=== PATIENT | male | born 1940 | race Caucasian/White ===

== ENCOUNTER 2020-06-24 10:06 | Outpatient (CLI) | payer MEDICARE, SELFPAY ==
[2020-06-24 11:09] LABS: Alanine Aminotransferase 17 U/L (4-50); Aspartate Amino Transferase 33 U/L (17-59)
== END 2020-06-24 10:07 | disposition home or self-care (01) ==
PROVIDERS: PCP Internal Medicine; Visit Provider Podiatrist Foot & Ankle Surgery
DX: B35.1 Tinea unguium (principal)
CPT/HCPCS: 36415; 84450; 84460

== ENCOUNTER 2024-12-07 09:01 | Outpatient (CLI) | payer MEDICARE, SELFPAY ==
--- OUTSIDE RECORDS SUMMARY | 2006-12-28 06:01 | XMS_ITS | Continuity of Care Document ---
Author Organization [facility] Address [address] [place] [address] Phone Care Team Providers Care Computer Technician Name Role Phone Bob Chavez MD Unavailable Unavailable Procedures Procedure Date Office/outpatient Visit, Est Eye Exam Established Pt Advance Directives Directive Yes / No Effective Date File Name No Information Encounters Encounter Description Practice Location Reason(s) For Visit Diagnoses Date Provider Providers Copied on Encounter Office/outpat ient Visit, Est [facility], [id number] [place] [address] [address], [place], [place], [id number], [place] tel:[phone] SEC [facility] No Information 7 Scott Rojas. [address], [address], [place], [place], [address], [place]. tel:[phone] [facility], [address] [place] [address] [address], [place], [place], [id number], [place] tel:[phone] SEC [facility] No Information [address] Claudia Cheung. [address] , [address], [place], [address], [place]. tel:[phone] Family History Family Member Type Diagnosis Age At Onset No Information Payers Payer name Insurance type Covered alliance party ID Authoriza tion(s) No Information Social History Type Description Quantity Date Captured Comments Sex Male Smoking Status No Information Chief Complaint And Reason For Visit No Information Reason For Referral Reason For Referral No Information History Of Present Illness Encounter Date Complaint History Of Prese nt Illness No Information Functional Status Date Functional Assessmen t No Information Instructions Date Instruction Additional Infor mation No Information Assessments Type Assessment Date No Information Patient Care Teams Name Effective Dates (start - stop) Status Members No Information
--- OUTSIDE RECORDS SUMMARY | 2024-12-07 09:49 | XMS_ITS | Encounter Summary ---
Author Organization [facility] Address [address] [facility] [place] [address] Care Team Providers Care Plush Cutter Name Role Phone Unavailable Primary Care Provider Unavailabl e Encounter Details Date Type Department Care Team (Late st Contact Info) Description 06/01/2018 Lab Requisition [facility] Care DermPath Lab [address] [place] [address] Guy Bro MD [address] [place] [address] Social History Tobacco Use Types Packs/Day Years Used Date Smoking Tobacco: Never Assessed Sex and Gender Information Value Date Recorded Sex Assigned at Not on file 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 Gender Identity Not on file Sexual Orientation Not on file documented as of this encounter Plan of Treatment Not on file documented as of this encounter Procedures Procedure Name Priority Date/Time Associated Diagnosis Comments DERMATOPATHOLOGY Routine 05/31/2018 12:0 0 AM CDT documented in this encounter Results * DERMATOPATHOLOGY (05/31/2018 12:00 AM CDT) Case Report Dermatopathology Report Case: [id number] Authorizing Provider: Guy Bro MD Collected: 05/31/2018 12:00 AM Pathologist: Snow Galan MD Received: 06/01/2018 12:59 PM Specimen: Skin, post right ear 9 3:19 PM CDT DERMATOPATHOLOGY LABORATORY Final Diagnosis Specimen A. SKIN, post right ear: BASAL CELL CARCINOMA, NODULAR TYPE (C44.212) 9 3:19 PM CDT DERMATOPATHOLOGY LABORATORY at 1519 CDT Clinical History R/O BCC. 3:19 PM CDT DERMATOPATHOLOGY LABORATORY Gross Description Specimen A: Received is one formalin filled container labeled with the patient's name and designated post right ear. The specimen consists of a shave biopsy measuring 3h3w7wu. Jar 0. 3:19 PM CDT DERMATOPATHOLOGY LABORATORY Microscopic Description Specimen A. SKIN, post right ear: Within the dermis there are aggregates of basaloid cells with a high nuclear to cytoplasmic ratio and peripheral palisading. 3:19 PM CDT DERMATOPATHOLOGY LABORATORY Disclaimer An external and internal positive and negative controls are appropriate for the histochemical, immunohistochemical and immunofluorescence stain(s) in this case (if any), except where stated explicitly. The performance characteristics of the stain(s) cited in this report were developed and its performance characteristic determined by the Dermatopathology Laboratory at [facility], directed by Dr. Lisa Galan. These tests need not be, and therefore are not, approved by the [place] Food and Drug Administration. The tests are used for clinical purposes. Billing Codes Specimen Charges Stain Charges 69355 1 3:19 PM CDT DERMATOPATHOLOGY LABORATORY Embedded Images 3:19 PM CDT DERMATOPATHOLOGY LABORATORY Pathology/Cytolog y TISSUE SPECIMEN FROM SKIN / Unknown 05/31/2018 06/01/2018 12:59 PM CDT Guy Bro MD LAB - PATHOLOGY/CYTOLOGY ORD ERABLES Final Result DERMATOPATHOLOGY LABORATORY [facility] - Department of Dermatology [facility] [facility] [place] [address], [facility] [phone] documented in this encounter Visit Diagnoses Not on filedocumented in this encounter
--- OUTSIDE RECORDS SUMMARY | 2024-12-07 09:49 | XMS_ITS | Encounter Summary ---
Author Organization 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 Gender Identity Not on file Sexual Orientation Not on file documented as of this encounter Plan of Treatment Not on file documented as of this encounter Procedures Procedure Name Priority Date/Time Associated Diagnosis Comments DERMATOPATHOLOGY Routine 06/23/2022 12:0 0 AM CDT documented in this encounter Results * DERMATOPATHOLOGY (06/23/2022 12:00 AM CDT) Case Report Dermatopathology Report Case: [id number] Authorizing Provider: Guy Bro MD Collected: 06/23/2022 12:00 AM Ordering Location: [facility] DermPath Lab Received: 06/24/2022 04:07 PM Pathologist: Kiki Manuel MD Specimen: Skin, right top helix rim 12:49 PM CDT DERMATOPATHOLOGY LABORATORY Final Diagnosis Specimen A. 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 The specimen consists of a shave biopsy measuring 6x4x1 mm. Jar 0. 3 12:49 PM CDT DERMATOPATHOLOGY LABORATORY Microscopic Description Specimen A. SKIN, right top helix rim: The epidermis shows parakeratosis, full thickness disorderly maturation of keratinocytes, mitoses at different levels, and dyskeratotic cells. Focal nests are present in the dermis. 3 12:49 PM CDT DERMATOPATHOLOGY LABORATORY Disclaimer An external and internal positive and negative controls are appropriate for the histochemical, immunohistochemical and immunofluorescence stain(s) in this case (if any), except where stated explicitly. The performance characteristics of the stain(s) cited in this report were developed and its performance characteristic determined by the Dermatopathology Laboratory at [facility], directed by Dr. Lisa Galan. These tests need not be, and therefore are not, approved by the [place] Food and Drug Administration. The tests are used for clinical purposes. Billing Codes Specimen Charges Stain Charges 79702 1 3 12:49 PM CDT DERMATOPATHOLOGY LABORATORY Embedded Images 3 12:49 PM CDT DERMATOPATHOLOGY LABORATORY Pathology/Cytolog y TISSUE SPECIMEN FROM SKIN / Unknown 06/23/2022 06/24/2022 4:07 PM CDT us Guy Bro MD LAB - PATHOLOGY/CYTOLOGY ORD ERABLES Final Result DERMATOPATHOLOGY LABORATORY [facility] - Department of Dermatology [address] [place] [address], [facility] [phone] documented in this encounter Visit Diagnoses Not on filedocumented in this encounter
--- OUTSIDE RECORDS SUMMARY | 2024-12-07 09:49 | XMS_ITS | Encounter Summary ---
Author Organization [facility] Address [address] [facility] [place] [address] Care Team Providers Care Dietitian Therapeutic Name Role Phone Unavailable Primary Care Provider Unavailabl e Encounter Details Date Type Department Care Team (Late st Contact Info) Description 06/09/2018 Lab Requisition [facility] Care DermPath Lab [address] [place] [address] Guy Bro MD [address] [place] [address] Social History Tobacco Use Types Packs/Day Years Used Date Smoking Tobacco: Never Assessed Sex and Gender Information Value Date Recorded Sex Assigned at Not on file 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 Gender Identity Not on file Sexual Orientation Not on file documented as of this encounter Plan of Treatment Not on file documented as of this encounter Procedures Procedure Name Priority Date/Time Associated Diagnosis Comments DERMATOPATHOLOGY Routine 06/08/2018 12:0 0 AM CDT documented in this encounter Results * DERMATOPATHOLOGY (06/08/2018 12:00 AM CDT) Case Report Dermatopathology Report Case: [id number] Authorizing Provider: Guy Bro MD Collected: 06/08/2018 12:00 AM Pathologist: Melva Hawkins MD Received: 06/09/2018 02:20 PM Specimen: Skin, post right ear 9 12:55 PM CDT DERMATOPATHOLOGY LABORATORY Final Diagnosis Specimen A. SKIN, post right ear: DERMAL SCAR; PRESENT AT MARGIN (L90.5) RESIDUAL BASAL CELL CARCINOMA NOT IDENTIFIED 9 12:55 PM CDT DERMATOPATHOLOGY LABORATORY at 1255 CDT Clinical History R/O Biopsy proven BCC, nodular type. See prior biopsy [id number]. Check margins 12:55 PM CDT DERMATOPATHOLOGY LABORATORY Gross Description Specimen A: Received is one formalin filled container labeled with the patient's name and designated post right ear. The specimen consists of a curettage and desiccation biopsy measuring 53g87x5 mm. Jar 0. 12:55 PM CDT DERMATOPATHOLOGY LABORATORY Microscopic Description Specimen A. SKIN, post right ear: There are fibroblasts and collagen bundles oriented parallel to the skin surface with elongated blood vessels, some of which are oriented perpendicular to the skin surface. No basal cell carcinoma is identified. The dermal scar extends to the base of the specimen. 12:55 PM CDT DERMATOPATHOLOGY LABORATORY Disclaimer An external and internal positive and negative controls are appropriate for the histochemical, immunohistochemical and immunofluorescence stain(s) in this case (if any), except where stated explicitly. The performance characteristics of the stain(s) cited in this report were developed and its performance characteristic determined by the Dermatopathology Laboratory at [facility], directed by Dr. Lisa Galan. These tests need not be, and therefore are not, approved by the [place] Food and Drug Administration. The tests are used for clinical purposes. Billing Codes Specimen Charges Stain Charges 47500 1 12:55 PM CDT DERMATOPATHOLOGY LABORATORY Embedded Images 12:55 PM CDT DERMATOPATHOLOGY LABORATORY Pathology/Cytolog y TISSUE SPECIMEN FROM SKIN / Unknown 06/08/2018 06/09/2018 2:20 PM CDT us Guy Bro MD LAB - PATHOLOGY/CYTOLOGY ORD ERABLES Final Result DERMATOPATHOLOGY LABORATORY [facility] - Department of Dermatology [address] [facility] [address] [place] [address], [facility] [phone] documented in this encounter Visit Diagnoses Not on filedocumented in this encounter
--- OUTSIDE RECORDS SUMMARY | 2024-12-07 09:49 | XMS_ITS | Clinical Summary ---
Author Organization [facility] Address [address] [place] [address] Care Team Providers Care Batter Mixer Helper Name Role Phone Unavailable Primary Care Provider Unavailabl e Source Comments [facility],non-owned Affiliates and Associated Physician Practices is amultiple site organization consisting of ambulatory clinics and hospital sitesin [place], [place], [place] and [place]. This disclosure is being madepursuant to the Care Everywhere program and may not contain all information available regarding this patient. 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 Gender Identity Not on file Sexual Orientation Not on file Plan of Treatment Health Maintenance Due Date Last Done Comments MEDICARE AWV 12 MONTHS 1940 DTAP/TDAP/TD VACCINES (1 - Tdap) 08/04/1958 PNEUMOCOCCAL VACCINE 50+ (1 of 1 - PCV) 08/04/1989 ZOSTER VACCINE (1 of 2) 08/04/1989 Respiratory Syncytial Virus (RSV) Vaccine Pt: or over 60 yrs (1 - 1-dose 75+ series) 08/04/2014 DEPRESSION SCREENING 02/23/2024 COVID-19 VACCINE (1 - 2023-2 5 season) 2024 INFLUENZA VACCINE (#1) 2024 HEPATITIS B VACCINE Aged Out No longe r eligible based on patient's age to complete this topic HIB VACCINE Aged Out No longer eligi ble based on patient's age to complete this topic HPV VACCINE Aged Out No longer eligi ble based on patient's age to complete this topic MENINGOCOCCAL (Group B) VACC INE SHARED DECISION-MAKING Aged Out No longer eligibl e based on patient's age to complete this topic MENINGOCOCCAL GROUPS A/C/Y/W VACCINE Aged Out No longer eligible b ased on patient's age to complete this topic Insurance MEDICARE [employer]
--- OUTSIDE RECORDS SUMMARY | 2024-12-07 09:49 | XMS_ITS | Encounter Summary ---
Author Organization [facility] Address [address] [facility] [place] [address] Care Team Providers Care Technical Trainer Name Role Phone Unavailable Primary Care Provider Unavailabl e Encounter Details Date Type Department Care Team (Late st Contact Info) Description 04/25/2020 Lab Requisition [facility] DermPath Lab [address] [place] [address] Guy Bro MD [address] [place] [address] Social History Tobacco Use Types Packs/Day Years Used Date Smoking Tobacco: Never Assessed Sex and Gender Information Value Date Recorded Sex Assigned at Not on file 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 Gender Identity Not on file Sexual Orientation Not on file documented as of this encounter Plan of Treatment Not on file documented as of this encounter Procedures Procedure Name Priority Date/Time Associated Diagnosis Comments DERMATOPATHOLOGY Routine 04/23/2020 3:33 AM CHAIR MECHANIC documented in this encounter Results * DERMATOPATHOLOGY (04/23/2020 3:33 AM CHAIR MECHANIC) Case Report Dermatopathology Report Case: [id number] Authorizing Provider: Guy Bro MD Collected: 04/23/2020 03:33 AM Ordering Location: [facility] Care DermPath Lab Received: 04/25/2020 06:52 AM Pathologist: Kiki Manuel MD Specimen: Skin, right upper lip cutaneous 12:55 PM CHAIR MECHANIC DERMATOPATHOLOGY LABORATORY Final Diagnosis Specimen A. SKIN, right upper lip cutaneous: SEBORRHEIC KERATOSIS (L82.1) 12:55 PM CHAIR MECHANIC DERMATOPATHOLOGY LABORATORY at [address] CHAIR MECHANIC Clinical History R/O SCC, HAK. 12:55 PM [facility] DERMATOPATHOLOGY LABORATORY Gross Description Specimen A: Received is one formalin filled container labeled with the patient's name and designated right upper lip cutaneous. The specimen consists of a shave biopsy measuring 2i3w7km, bisected. Jar 0. 12:55 PM [facility] DERMATOPATHOLOGY LABORATORY Microscopic Description Specimen A. SKIN, right upper lip cutaneous: Sections show an acanthotic lesion composed of relatively uniform keratinocytes. There is hyperkeratosis and pseudo horn cysts formation. 12:55 PM [facility] DERMATOPATHOLOGY LABORATORY Disclaimer An external and internal positive and negative controls are appropriate for the histochemical, immunohistochemical and immunofluorescence stain(s) in this case (if any), except where stated explicitly. The performance characteristics of the stain(s) cited in this report were developed and its performance characteristic determined by the Dermatopathology Laboratory at [facility], directed by Dr. Lisa Galan. These tests need not be, and therefore are not, approved by the [place] Food and Drug Administration. The tests are used for clinical purposes. Billing Codes Specimen Charges Stain Charges 15785 1 12:55 PM [facility] DERMATOPATHOLOGY LABORATORY Embedded Images 12:55 PM [facility] DERMATOPATHOLOGY LABORATORY Pathology/Cytolo gy TISSUE SPECIMEN FROM SKIN / Unknown 04/23/2020 3:33 AM CHAIR MECHANIC 04/25/2020 6:52 AM CHAIR MECHANIC Guy Bro MD LAB - PATHOLOGY/CYTOLOGY ORD ERABLES Final Result DERMATOPATHOLOGY LABORATORY [facility] - Department of Dermatology [address] [place] [address], [facility] [phone] documented in this encounter Visit Diagnoses Not on filedocumented in this encounter
--- OUTSIDE RECORDS SUMMARY | 2024-12-07 09:49 | XMS_ITS | Encounter Summary ---
Author Organization [facility] Address [address] [place] [address] Care Team Providers Care Apparel Stock Checker Name Role Phone Unavailable Primary Care Provider Unavailabl e Encounter Details Date Type Department Care Team (Late st Contact Info) Description 04/07/2021 Lab Requisition [facility] DermPath Lab [address] [place] [address] Guy Bro MD [address] [place], [place] [id number] Social History Tobacco Use Types Packs/Day Years Used Date Smoking Tobacco: Never Assessed Sex and Gender Information Value Date Recorded Sex Assigned at Not on file 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 Gender Identity Not on file Sexual Orientation Not on file documented as of this encounter Plan of Treatment Not on file documented as of this encounter Procedures Procedure Name Priority Date/Time Associated Diagnosis Comments DERMATOPATHOLOGY Routine 04/04/2021 12:0 0 AM STAPLE SHEAR OPERATOR documented in this encounter Results * DERMATOPATHOLOGY (04/04/2021 12:00 AM STAPLE SHEAR OPERATOR) Case Report Dermatopathology Report Case: [id number] Authorizing Provider: Guy Bro MD Collected: 04/04/2021 12:00 AM Ordering Location: [facility] Care DermPath Lab Received: 04/07/2021 12:53 PM Pathologist: Kristen Fried MD Specimen: Skin, right helix rim 12:37 PM STAPLE SHEAR OPERATOR DERMATOPATHOLOGY LABORATORY Final Diagnosis Specimen A. SKIN, right helix rim: SQUAMOUS CELL CARCINOMA, WELL DIFFERENTIATED (C44.229) 12:37 PM STAPLE SHEAR OPERATOR DERMATOPATHOLOGY LABORATORY at 1237 STAPLE SHEAR OPERATOR Clinical History R/O SCC. BCC 2 12:37 PM [facility] DERMATOPATHOLOGY LABORATORY Gross Description Specimen A: Received is one formalin filled container labeled with the patient's name and designated right helix rim. The specimen consists of a shave biopsy measuring 12x5x1 and 12x3x1 mm. Jar 0. 2 12:37 PM [facility] DERMATOPATHOLOGY LABORATORY Microscopic Description Specimen A. SKIN, right helix rim: Arising in the epidermis and extending into the dermis there are irregularly shaped aggregates of keratinocytes showing evidence of premature cornification. 2 12:37 PM [facility] DERMATOPATHOLOGY LABORATORY Disclaimer An external and internal positive and negative controls are appropriate for the histochemical, immunohistochemical and immunofluorescence stain(s) in this case (if any), except where stated explicitly. The performance characteristics of the stain(s) cited in this report were developed and its performance characteristic determined by the Dermatopathology Laboratory at [facility], directed by Dr. Lisa Galan. These tests need not be, and therefore are not, approved by the [place] Food and Drug Administration. The tests are used for clinical purposes. Billing Codes Specimen Charges Stain Charges 11747 1 2 12:37 PM STAPLE SHEAR OPERATOR DERMATOPATHOLOGY LABORATORY Embedded Images 2 12:37 PM [facility] DERMATOPATHOLOGY LABORATORY Pathology/Cytolog y TISSUE SPECIMEN FROM SKIN / Unknown 04/04/2021 04/07/2021 12:53 PM STAPLE SHEAR OPERATOR Guy Bro MD LAB - PATHOLOGY/CYTOLOGY ORD ERABLES Final Result DERMATOPATHOLOGY LABORATORY [facility] - Department of Dermatology [address] [place] [address], [facility] [phone] documented in this encounter Visit Diagnoses Not on filedocumented in this encounter
--- OUTSIDE RECORDS SUMMARY | 2024-12-07 09:49 | XMS_ITS | Encounter Summary ---
Author Organization [facility] Address [address] [place] [address] Care Team Providers Care Gum Cook Name Role Phone Unavailable Primary Care Provider Unavailabl e Encounter Details Date Type Department Care Team (Late st Contact Info) Description 09/22/2017 Lab Requisition [facility] [address] [place] [address] Guy Bro MD [address] [place] [address] Social History Tobacco Use Types Packs/Day Years Used Date Smoking Tobacco: Never Assessed Sex and Gender Information Value Date Recorded Sex Assigned at Not on file 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 Gender Identity Not on file Sexual Orientation Not on file documented as of this encounter Plan of Treatment Not on file documented as of this encounter Procedures Procedure Name Priority Date/Time Associated Diagnosis Comments DERMATOPATHOLOGY Routine 09/21/2017 12:0 0 AM CDT documented in this encounter Results * DERMATOPATHOLOGY (09/21/2017 12:00 AM CDT) Case Report Dermatopathology Report Case: [id number] Authorizing Provider: Guy Bro MD Collected: 09/21/2017 12:00 AM Pathologist: Snow Galan MD Received: 09/22/2017 11:48 AM Specimens: A) - Skin, right paraspinal upper back B) - Skin, above right mid clavicle base of neck C) - Skin, left side neck 8 6:09 PM CDT DERMATOPATHOLOGY LABORATORY Final Diagnosis Specimen A. SKIN, right paraspinal upper back: BASAL CELL CARCINOMA, SUPERFICIAL MULTIFOCAL (C44.519) Specimen B. SKIN, above right mid clavicle base of neck: HYPERPLASTIC (HYPERTROPHIC) ACTINIC KERATOSIS (L57.0) Specimen C. SKIN, left side neck: ACTINIC KERATOSIS (L57.0) 8 6:09 PM T DERMATOPATHOLOGY LABORATORY at 1809 CDT Clinical History A-C: R/O Skaggs's, BCC, SCC. 8 6:09 PM CDT DERMATOPATHOLOGY LABORATORY Gross Description Specimen A: Received is one formalin filled container labeled with the patient's name and designated right paraspinal upper back. The specimen consists of a curettage and desiccation biopsy measuring [id number]. Jar 0. Specimen B: Received is one formalin filled container labeled with the patient's name and designated above left mid clavicle base of neck. The specimen consists of a curettage and desiccation biopsy measuring [id number]. Jar 0. Specimen C: Received is one formalin filled container labeled with the patient's name and designated left side neck. The specimen consists of a shave biopsy measuring [id number]. Jar 0. 8 6:09 PM CDT DERMATOPATHOLOGY LABORATORY Microscopic Description Specimen A. SKIN, right paraspinal upper back: Attached to the undersurface of the epidermis, there are small aggregates of basaloid cells with a high nuclear to cytoplasmic ratio and peripheral palisading. Specimen B. SKIN, above right mid clavicle base of neck: There is hyperkeratosis alternating with parakeratosis. There is epidermal hyperplasia with disorderly maturation of keratinocytes with nuclear pleomorphism confined to the lower half of the epidermis. Specimen C. SKIN, left side neck: There is focal parakeratosis. The lower half of the epidermis shows disorderly maturation of keratinocytes with nuclear pleomorphism. 8 6:09 PM CDT DERMATOPATHOLOGY LABORATORY Disclaimer An external and internal positive and negative controls are appropriate for the histochemical, immunohistochemical and immunofluorescence stain(s) in this case (if any), except where stated explicitly. The performance characteristics of the stain(s) cited in this report were developed and its performance characteristic determined by the Dermatopathology Laboratory at [facility]. These tests need not be, and therefore are not, approved by the [place] Food and Drug Administration. The tests are used for clinical purposes. Billing Codes Specimen Charges Stain Charges 87174 95774 52648 1 1 1 8 6:09 PM CDT DERMATOPATHOLOGY LABORATORY Embedded Images 8 6:09 PM CDT DERMATOPATHOLOGY LABORATORY Pathology/Cytology TISSUE SPECIMEN FROM SKIN / Unknown 09/21/2017 09/22/2017 11:48 AM CDT Miscellaneous samples (specimen) TISSUE SPECIMEN FROM SKIN / Unknown 09/21/2017 09/22/2017 11:48 AM CDT Miscellaneous samples (specimen) TISSUE SPECIMEN FROM SKIN / Unknown 09/21/2017 09/22/2017 11:48 AM CDT Guy Bro MD LAB - PATHOLOGY/CYTOLOGY ORD ERABLES Final Result DERMATOPATHOLOGY LABORATORY [facility] - Department of Dermatology [address] [place] [address] 5th Floor Lab [address] [phone] documented in this encounter Visit Diagnoses Not on filedocumented in this encounter
--- OUTSIDE RECORDS SUMMARY | 2024-12-07 09:49 | XMS_ITS | Encounter Summary ---
Author Organization 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 Gender Identity Not on file Sexual Orientation Not on file documented as of this encounter Plan of Treatment Not on file documented as of this encounter Procedures Procedure Name Priority Date/Time Associated Diagnosis Comments DERMATOPATHOLOGY Routine 10/05/2017 12:0 0 AM CDT documented in this encounter Results * DERMATOPATHOLOGY (10/05/2017 12:00 AM CDT) Case Report Dermatopathology Report Case: [id number] Authorizing Provider: Guy Bro MD Collected: 10/05/2017 12:00 AM Pathologist: Melva Hawkins MD Received: 10/06/2017 11:48 AM Specimen: Skin, left nape of neck 8 1:55 PM CDT DERMATOPATHOLOGY LABORATORY Final Diagnosis Specimen A. 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 1:55 PM CDT DERMATOPATHOLOGY LABORATORY Gross Description Specimen A: Received is one formalin filled container labeled with the patient's name and designated left nape of neck. The specimen consists of a shave biopsy (2 pieces) measuring [id number] & [id number]. Jar 0. 1:55 PM CDT DERMATOPATHOLOGY LABORATORY Microscopic Description Specimen A. SKIN, left nape of neck: Sections show acanthosis, hypergranulosis, and hyperkeratosis. The papillary dermis is fibrotic. 1:55 PM CDT DERMATOPATHOLOGY LABORATORY Disclaimer An external and internal positive and negative controls are appropriate for the histochemical, immunohistochemical and immunofluorescence stain(s) in this case (if any), except where stated explicitly. The performance characteristics of the stain(s) cited in this report were developed and its performance characteristic determined by the Dermatopathology Laboratory at [facility]. These tests need not be, and therefore are not, approved by the [place] Food and Drug Administration. The tests are used for clinical purposes. Billing Codes Specimen Charges Stain Charges 80684 1 8 1:55 PM CDT DERMATOPATHOLOGY LABORATORY Embedded Images 1:55 PM CDT DERMATOPATHOLOGY LABORATORY Pathology/Cytolog y TISSUE SPECIMEN FROM SKIN / Unknown 10/05/2017 10/06/2017 11:48 AM CDT Guy Bro MD LAB - PATHOLOGY/CYTOLOGY ORD ERABLES Final Result DERMATOPATHOLOGY LABORATORY [facility] - Department of Dermatology [address] [facility], 5th [place] [address], [facility] [phone] documented in this encounter Visit Diagnoses Not on filedocumented in this encounter
[2024-12-07 11:01] LABS: Alanine Aminotransferase 19 U/L (6-50); Aspartate Amino Transferase 47 U/L (17-59)
== END 2024-12-07 09:02 | disposition home or self-care (01) ==
PROVIDERS: PCP Internal Medicine; Visit Provider Podiatrist Foot & Ankle Surgery
DX: B35.1 Tinea unguium (principal)
CPT/HCPCS: 36415; 84450; 84460